=== PATIENT | male | born 1950 | race Caucasian/White ===

== ENCOUNTER → 2022-08-28 09:09 | Outpatient (BNVA) | payer MEDICARE, SELFPAY | PROVIDERS: Family Provider Family Medicine; Visit Provider Podiatrist Foot & Ankle Surgery | DX: E11.42 Type 2 diabetes mellitus with diabetic polyneuropathy (principal); L60.3 Nail dystrophy; M21.41 Flat foot [pes planus] (acquired), right foot; M21.42 Flat foot [pes planus] (acquired), left foot; M20.41 Other hammer toe(s) (acquired), right foot; M20.42 Other hammer toe(s) (acquired), left foot; Z79.84 Long term (current) use of oral hypoglycemic drugs; Z79.4 Long term (current) use of insulin | CPT/HCPCS: 11721; 99204 ==

== ENCOUNTER 2022-10-03 14:08 | Outpatient (CLI) | payer MEDICARE, SELFPAY ==
--- NOTE | 2022-10-03 14:21 | USCV_ITS ---
Mitesh Batista Age: 72 Gender: M : 1950 Exam Date: 10/03/2022 14:48 Ordering Phys: Jennifer Bazzi MD Technologist: Exam [place] [facility] [place] Indication: pad leg pain Risk Factors: Previous Vascular Surgery: RIGHT LEFT BP: 130.0 / 80.00 BP: 130.0/ 80.00 0 0 Waveform Velocity (cm/s) Velocity (cm/s) Waveform Triphasic 84.9 Iliac Prox 149.7 Triphasic Triphasic 99.5 Iliac Mid 145.5 Triphasic Triphasic 96.9 Iliac Distal 127.3 Triphasic Triphasic 84.5 IRON MINER 130.1 Triphasic Triphasic 124.5 SFA Prox 152.5 Triphasic Triphasic 136.6 SFA Mid 117.5 Triphasic Triphasic SFA Dist Triphasic 136.6 118.9 Biphasic 51.8 POP 71.6 Triphasic Biphasic 56.0 DAIRY SCIENTIST 58.3 Biphasic Biphasic 42.5 DPA 58.3 Biphasic 1.1 CAROL 1.1 FINDINGS Normal resting ABIs bilaterally Near normal arterial Doppler waveforms bilaterally. Near normal Doppler flow velocities bilaterally CONCLUSIONS No evidence of any significant arterial obstruction, based on the above findings. Dr Rose Pineda MD [facility] (Electronically Signed) Final Date: 03 October 2022 17:03 S
== END 2022-10-03 14:09 | disposition home or self-care (01) ==
LOC: RAD 14:11
PROVIDERS: PCP Family Medicine; Visit Provider Family Medicine
DX: I73.9 Peripheral vascular disease, unspecified (principal); E11.51 Type 2 diabetes mellitus with diabetic peripheral angiopathy without gangrene
CPT/HCPCS: 93925

== ENCOUNTER 2023-12-13 19:27 | Inpatient (IN) | payer MEDICARE, SELFPAY ==
[2023-12-13] VITALS (11 sets, daily range): BP systolic 119–162; BP diastolic 43–83; PULSE 58–67; RESP 16–18; TEMP 36.4–36.8; O2SAT 94–99; BMI 32.4
--- NOTE | 2023-12-13 19:32 | XRR_ITS ---
PROCEDURE INFORMATION: Exam: XR Chest Exam date and time: 12/13/2023 8:10 PM Age: 73 years old Clinical indication: Other: Weakness TECHNIQUE: Imaging protocol: Radiologic exam of the chest. Views: 1 view. COMPARISON: No relevant prior studies available. FINDINGS: Lungs: Low lung volumes. Pleural spaces: No pleural effusion. No pneumothorax. Heart/Mediastinum: Enlarged cardiac silhouette. Bones/joints: Age appropriate. XR/XR chest 1V portable [id number] IMPRESSION: Low lung volumes without convincing airspace disease or edema. Moderate cardiomegaly.
--- NOTE | 2023-12-13 19:33 | ECG_ITS ---
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 Measurements Intervals [place] Rate: 63 P: 83 CO: 174 QRS: 84 QRSD: 102 T: 77 QT: 418 QTc: 431 Interpretive Statements SINUS RHYTHM WITH OCCASIONAL VENTRICULAR PREMATURE COMPLEXES WITH OCCASIONAL SUPRAVENTRICULAR PREMATURE COMPLEXES No previous ECG available for comparison Electronically Signed On 12-14-2023 21:34:29 CDT by Brian Downey M.D. [email or web address] [email or web address] [email or web address]/[id number]
--- NOTE | 2023-12-13 19:46 | CTR_ITS ---
PROCEDURE INFORMATION: Exam: CT Head Without Contrast Exam date and time: 12/13/2023 8:08 PM Age: 73 years old Clinical indication: Altered mental status/memory loss; Patient HX: EMS arrival for AMS. EMS reports glucose of 88. Patient is restless and non verbal with eyes closed. ; Additional info: Encephalopathy, altered mental status TECHNIQUE: Imaging protocol: Computed tomography of the head without contrast. Radiation optimization: All CT scans at this facility use at least one of these dose optimization techniques: automated exposure control; mA and/or kV adjustment per patient size (includes targeted exams where dose is matched to clinical indication); or iterative reconstruction. COMPARISON: No relevant prior studies available. RADIATION DOSE METRICS: Total DLP (mGy-cm): 2405.98 FINDINGS: Brain: No hemorrhage. Unremarkable white matter. No mass effect. Preserved conley-white interfaces. Cerebral ventricles: No ventriculomegaly. Paranasal sinuses: Visualized sinuses are unremarkable. No fluid levels. Mastoid air cells: Visualized mastoid air cells are well aerated. Bones: Unremarkable. No acute fracture. Soft tissues: Unremarkable. CT/CT head wo con* [id number] IMPRESSION: No evidence of acute intracranial hemorrhage, mass effect, or edema.
--- NOTE | 2023-12-13 19:47 | W.ED.AMS ---
HPI - Altered Mental Status General: Chief Complaint: Altered Mental Status Stated Complaint: hypoglycemic Time Seen by Provider: 12/13/23 19:32 History of Present Illness: 73-year-old man who presents the emergency room with hypoglycemia and altered mental status by ambulance. He is still a bit confused on presentation but will answer some questions. He states that he does not feel well. He denies anything hurting at the moment. Unable to obtain much other history from him at this time. Review of Systems General: Reports: ROS unobtainable due to medical condition and ROS unobtainable due to mental status Physical Exam Narrative: General: Patient is somnolent but arousable, diaphoretic.. Skin: Warm, diaphoretic. Head: Normocephalic, atraumatic. Neck: Supple, trachea midline. Eye: Extraocular movements are intact. Ears, nose, mouth and throat: mucosa moist. Cardiovascular: Regular, Normal peripheral perfusion. Respiratory: Lungs are clear to auscultation, respirations are non-labored, breath sounds are equal, Symmetrical chest wall expansion. Gastrointestinal: Soft, Nontender, Non distended, Normal bowel sounds. Musculoskeletal: Normal ROM, no deformity. Neurological: Very somnolent, No focal neurological deficit observed. Psychiatric: Somnolent, unable to assess Course Vital Signs: Vital signs: Vital Signs Temperature 98.3 F 12/13/23 19:30 Pulse Rate 63 12/13/23 19:30 Respiratory Rate 16 12/13/23 19:30 Blood Pressure 149/58 12/13/23 19:30 Pulse Oximetry 97 12/13/23 19:30 Oxygen Delivery Me thod Nasal Cannula 12/13/23 19:30 Oxygen Flow Rate 2 12/13/23 19:30 MDM - Altered Mental Status Medical Decision Making Medical decision making: Differential diagnosis including but not limited to and based on the above HPI, review of systems and physical exam: In this patient with altered mental status: Stroke. Hypoglycemia. Metabolic encephalopathy. Infections such as pneumonia, urinary tract infection, Covid-19, Influenza. Electrolyte abnormalities such as hypernatremia. Renal failure / uremia. Hepatic encephalopathy. Hypoxemia. Hypercapnic respiratory failure. Psychosis. Drug or alcohol intoxication. Medication overdose. Orders placed to evaluate differential diagnosis based on the above differential, HPI and physical exam Lab Review: Laboratory results were reviewed and interpreted by myself the emergency room physician. Lab work is fairly unremarkable. BUN creatinine are slightly elevated with creatinine of 1.3. I have no previous measurements. His glucoses remained above 90 here. Urinalysis is clear. Drug screen is negative. Bilateral level is negative. AB.3 no CO2 retention. Chest x-ray: No acute process. No infiltrate. No pneumothorax. No cardiomegaly. This was reviewed and interpreted by myself the ER physician. CT head: No acute intracranial process. no intracranial hemorrhage, no evidence of infarct. no evidence of acute fracture.This was reviewed and interpreted by myself the ER physician. I also reviewed the radiology reports. I reviewed the patient's medical record. Reexamination: Patient still fairly somnolent but is less agitated at admission. Narcan did not seem to make any difference. I discussed plan for admission with . I discussed results with her. He has no focal motor deficits. No increased work of breathing. Assessment and plan: Metabolic encephalopathy Dehydration -I discussed the patient with the hospitalist on-call who is admitting the patient. - Discussed findings and plan with patient. Answered any questions. - All laboratory values were reviewed and interpreted personally by myself, the ER physician - All imaging was reviewed and interpreted personally by myself, the ER physician. - Evaluation and treatment of this problem were appropriate in the emergency setting Lab Data 12/13/23 19:48 12/13/23 19:48 Radiology Impressions Chest X-Ray 12/13/23 19:32 IMPRESSION: Low lung volumes without convincing airspace disease or edema. Moderate cardiomegaly. Head CT 12/13/23 19:46 IMPRESSION: No evidence of acute intracranial hemorrhage, mass effect, or edema. Laboratory Results WBC 7.31 10^3/uL (3.29-11.43) 12/13/23 19:48 RBC 5.19 10^6/uL (3.85-5.65) 12/13/23 19:48 Hgb 15.90 g/dL (11.27-16.99) 12/13/23 19:48 Hct 48.1 % (37-53) 12/13/23 19:48 MCV 92.7 fl (82-101) 12/13/23 19:48 MCH 30.6 pg (27-33) 12/13/23 19:48 MCHC 33.1 g/dL (30-55) 12/13/23 19:48 RDW 13.6 % (12.1-15.1) 12/13/23 19:48 Plt Count 218 10^3/cmm (157-399) 12/13/23 19:48 MPV 10.6 fL (7.4-10.4) H 12/13/23 19:48 Neut % (Auto) 54.4 % 12/13/23 19:48 Lymph % (Auto) 26.3 % 12/13/23 19:48 Emmons % (Auto) 11.8 % 12/13/23 19:48 Eos % (Auto) 6.4 % 12/13/23 19:48 Baso % (Auto) 0.8 % 12/13/23 19:48 Neut # (Auto) 3.98 10^3/uL (1.8-7.7) 12/13/23 19:48 Lymph # (Auto) 1.9 10^3/uL (0.8-4.8) 12/13/23 19:48 Emmons # (Auto) 0.9 10^3/uL (0.2-0.9) 12/13/23 19:48 Eos # (Auto) 0.5 10^3/uL (0.0-0.8) 12/13/23 19:48 Baso # (Auto) 0.1 10^3/uL (0.0-0.1) 12/13/23 19:48 Nucleated RBC % (auto) 0 % 12/13/23 19:48 Nucleated RBCs # 0.0 /100WBC 12/13/23 19:48 Specimen Type Arterial 12/13/23 19:46 Sample Site Radial, right 12/13/23 19:46 ABG pH 7.38 (7.35-7.45) 12/13/23 19:46 ABG pCO2 42.6 mmHg (35-45) 12/13/23 19:46 ABG pO2 76.3 mmHg (80.0-100.0) L 12/13/23 19:46 ABG HCO3 25.0 mmol/L (22-26) 12/13/23 19:46 ABG O2 Saturation 95.6 12/13/23 19:46 ABG Base Excess -0.4 mmol/L (-2.0-2.0) 12/13/23 19:46 Alli Test Pos 12/13/23 19:46 A-a O2 Gradient 2.6 mmHg (5-10) L 12/13/23 19:46 Hematocrit 48.8 % (42-52) 12/13/23 19:46 Hgb O2 Saturation 93.8 % (95-100) L 12/13/23 19:46 Carboxyhemoglobin 1.3 %THgb (0.4-20.1) 12/13/23 19:46 Methemoglobin 0.5 % (0.4-1.5) 12/13/23 19:46 Total Hemoglobin 15.9 g/dL (14-18) 12/13/23 19:46 Sodium 137.0 mmol/L (131-143) 12/13/23 19:46 Potassium 3.6 mmol/L (3.5-5.0) 12/13/23 19:46 Glucose 94.0 mg/dL (70-115) 12/13/23 19:46 Ionized Calcium 1.1 mmol/L (1.1-1.4) 12/13/23 19:46 O2 Delivery Device Room air 12/13/23 19:46 Logistic Specialist ID [email or web address] 12/13/23 19:46 Sodium 137 mmol/L (136-145) 12/13/23 19:48 Potassium 4.0 mmol/L (3.5-5.1) 12/13/23 19:48 Chloride 98 mmol/L (98-107) 12/13/23 19:48 Carbon Dioxide 28 mmol/L (22-29) 12/13/23 19:48 Anion Gap 15.0 (5-19) 12/13/23 19:48 BUN 25 mg/dL (8-23) H 12/13/23 19:48 Creatinine 1.3 mg/dL (0.7-1.2) H 12/13/23 19:48 GFR Calculation Not Reportable 12/13/23 19:48 Glucose 97 mg/dL (65-115) 12/13/23 19:48 Calculated Osmolality 288 mOsm/kg (285-295) 12/13/23 19:48 Lactic Acid 3.3 mmol/L (0.5-2.2) H 12/13/23 19:48 Calcium 8.8 mg/dL (8.5-10.5) 12/13/23 19:48 Total Bilirubin 0.7 mg/dL (0.15-1.2) 12/13/23 19:48 AST 28 U/L (0-40) 12/13/23 19:48 ALT 34 U/L (0-41) 12/13/23 19:48 Alkaline Phosphatase 73 U/L (40-130) 12/13/23 19:48 Troponin T Baseline 39 ng/L (0-15) H 12/13/23 19:48 C-Reactive Protein 3.0 mg/L (0.0-4.9) 12/13/23 19:48 Total Protein 6.9 g/dL (6.6-8.7) 12/13/23 19:48 Albumin 4.0 g/dL (3.5-5.2) 12/13/23 19:48 Globulin 2.9 g/dL (1.3-4.6) 12/13/23 19:48 Urine Color Yellow (Yellow) 12/13/23 20:01 Urine Appearance Clear (CLEAR) 12/13/23 20:01 Urine pH 5 (5-7) 12/13/23 20:01 Ur Specific [place] 1.005 (1.005-1.030) 12/13/23 20:01 Urine Protein Neg (Negative) 12/13/23 20:01 Urine Glucose (UA) 4+ (Normal) H 12/13/23 20:01 Urine Ketones Negative (Negative) 12/13/23 20:01 Urine Blood Neg (Negative) 12/13/23 20:01 Urine Nitrate Negative (Negative) 12/13/23 20:01 Urine Bilirubin Neg (Negative) 12/13/23 20:01 Urine Urobilinogen Neg mg/dL (Negative) 12/13/23 20:01 Ur Leukocyte Esterase Negative (Negative) 12/13/23 20:01 Urine RBC 0-4 /hpf (0-2) H 12/13/23 20:01 Urine WBC 0-4 /hpf (0-5) H 12/13/23 20:01 Ur Squamous Epith Cells 0-4 /hpf (0-5) H 12/13/23 20:01 Amorphous Sediment Not Reportable 12/13/23 20:01 Urine Bacteria Trace /hpf (NONE) 12/13/23 20:01 Urine Mucus Trace /hpf 12/13/23 20:01 Urine Opiates Screen Negative ng/mL (Negative) 12/13/23 20:01 Ur Barbiturates Screen Negative ng/mL (Negative) 12/13/23 20:01 Ur Phencyclidine Scrn Negative ng/mL (Negative) 12/13/23 20:01 Ur Amphetamines Screen Negative ng/mL (Negative) 12/13/23 20:01 U Benzodiazepines Scrn Negative ng/mL (Negative) 12/13/23 20:01 Urine Cocaine Screen Negative ng/mL (Negative) 12/13/23 20:01 U Marijuana (THC) Screen Negative ng/mL (Negative) 12/13/23 20:01 Ethyl Alcohol < 10 mg/dL (0-10) 12/13/23 19:48 All radiology interpretation(s) finalized by discharge Discharge Plan Discharge Patient Disposition: Admitted As Inpatient Admit Provider: Roland Hunt Clinical Impression: Hypoglycemia, Altered mental status, Metabolic encephalopathy, Dehydration Condition: Stable Coding Level of Care Code ED Well Cleaner for Merlin Rendon
[2023-12-13 19:58] LABS: ABG PCO2 42.6 mmHg (35-45); ABG PH Result 7.38 (7.35-7.45); Alveolar-Arterial Oxygen Gradi 2.6 mmHg (5-10); Arterial Blood Gas Hematocrit 48.8 % (42-52); Base Excess ABG -0.4 mmol/L (-2.0-2.0); Blood Gas Allen Test Pos; Blood Gas Sample Site Radial, right; Blood Gas Sample Type Arterial; Carboxyhemoglobin 1.3 %THgb (0.4-20.1); HGB O2 Sat 93.8 % (95-100); Ionized Calcium Level - ABG 1.1 mmol/L (1.1-1.4); Methemoglobin 0.5 % (0.4-1.5); Oxygen Device ROOM AIR; Oxygen Saturation ABG 95.6; PO2 ABG 76.3 mmHg (80.0-100.0); Potassium Level - ABG 3.6 mmol/L (3.5-5.0); Total Hemoglobin 15.9 g/dL (14-18)
[2023-12-13 20:13] LABS: Basophils # 0.1 10^3/uL (0.0-0.1); Basophils % 0.8 %; Eosinophils # 0.5 10^3/uL (0.0-0.8); Eosinophils % 6.4 %; Hematocrit 48.1 % (37-53); Lymphocytes # 1.9 10^3/uL (0.8-4.8); Lymphocytes % 26.3 %; Mean Corpuscular HGB Conc 33.1 g/dL (30-55); Mean Corpuscular Hemoglobin 30.6 pg (27-33); Mean Corpuscular Volume 92.7 fl (82-101); Mean Platelet Volume 10.6 fL (7.4-10.4); Monocytes # 0.9 10^3/uL (0.2-0.9); Monocytes % 11.8 %; Neutrophils # 3.98 10^3/uL (1.8-7.7); Neutrophils % 54.4 %; Nucleated Red Blood Cells % 0 %; Platelet Count 218 10^3/cmm (157-399); Red Blood Count 5.19 10^6/uL (3.85-5.65); Red Cell Distribution Width 13.6 % (12.1-15.1); White Blood Count 7.31 10^3/uL (3.29-11.43)
[2023-12-13 20:19] LABS: Bacteria Urine TRACE /hpf; Bilirubin Urine Neg (Negative); Blood Urine Neg (Negative); Glucose Urine UA 4+ (Normal); Ketones Urine Negative (Negative); Leukocyte Esterase Urine Negative (Negative); Nitrate Urine Negative (Negative); Protein Urine Neg (Negative); RBC Urine 0-4 /hpf (0-2); Specific Gravity, Urine 1.005 (1.005-1.030); Squamous Epithelial Cell Urine 0-4 /hpf (0-5); Urine Appearance Clear (CLEAR); Urine Color Yellow (Yellow); Urobilinogen Urine Neg (Negative); WBC Urine 0-4 /hpf (0-5); pH Urine 5 (5-7)
[2023-12-13 20:20] LABS: Mucus Urine TRACE /hpf
[2023-12-13 20:32] LABS: Lactic Sepsis W/Reflex 3.3 mmol/L (0.5-2.2)
[2023-12-13 20:33] LABS: Alanine Aminotransferase 34 U/L (0-41); Alkaline Phosphatase 73 U/L (40-130); Aspartate Amino Transferase 28 U/L (0-40); Blood Urea Nitrogen 25 mg/dL (8-23); Calcium 8.8 mg/dL (8.5-10.5); Carbon Dioxide 28 mmol/L (22-29); Chloride 98 mmol/L (98-107); Globulin 2.9 g/dL (1.3-4.6); Glucose 97 mg/dL (65-115); Osmolality Calculated 288 mOsm/kg (285-295); Sodium 137 mmol/L (136-145); Total Bilirubin 0.7 mg/dL (0.15-1.2); Total Protein 6.9 g/dL (6.6-8.7)
[2023-12-13 20:36] LABS: Troponin(5th) Baseline 39 ng/L (0-15)
[2023-12-13 20:38] LABS: Alcohol Level < 10 mg/dL (0-10)
[2023-12-13] MEDS: naloxone 0.4 mg/ml SDV 0.400000000000000022 MG IVP (21:01)
[2023-12-13 21:14] LABS: Amphetamines Screen Urine Negative (Negative); Barbiturates Screen Urine Negative (Negative); Benzodiazepines Screen Urine Negative (Negative); Cocaine Screen Urine Negative (Negative); Opiate Screen Urine Negative (Negative); PCP Screen Urine Negative (Negative); THC Screen Urine Negative (Negative)
--- NOTE | 2023-12-13 21:33 | ECG_ITS ---
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 Measurements Intervals [place] Rate: 55 P: 50 IN: 195 QRS: 20 QRSD: 96 T: 50 QT: 436 QTc: 418 Interpretive Statements SINUS BRADYCARDIA Compared to ECG 12/13/2023 19:51:31 Sinus rhythm no longer present Ventricular premature complex(es) no longer present Electronically Signed On 12-14-2023 21:37:22 CDT by Brian Downey M.D. [id number]
[2023-12-13 21:35] LABS: Glucose Point of Care 85 mg/dL (70-110)
[2023-12-13 21:45] LABS: Procalcitonin 0.11 ng/mL (0-0.5)
[2023-12-13] MEDS: dextrose 10% 250 ML 1000 ML IV (21:48)
--- NOTE | 2023-12-13 21:48 | PM.HP ---
Providers/Chief Complaint Admitting Physician: Roland Hunt MD Primary Care Provider: Jennifer Bazzi MD Chief Complaint: hypoglycemic History of Present Illness Mitesh Batista is a 73 year old male who called EMS today this afternoon due to episode of hypoglycemia. Patient stated that he felt like he was going to pass out and was becoming dizzy so he called EMS. His blood sugar was noted to be 30 at the time of EMS pickup. He he received dextrose in the emergency room, however continued to be somnolent thereafter. CT of the head was without any evidence of acute stroke. Patient is much better at the time of my assessment later tonight. He is alert awake and oriented. Patient takes sliding scale insulin prior to meals and also takes insulin glargine at 70 units daily. States he has frequent episodes of hypoglycemia especially towards the afternoon time. There has been no recent changes in his insulin dosing. He reports his last A1c was at around 7. Insulin is typically managed by his primary care provider. Has had no other complaints previously. Review of Systems General: Reports: 10 or more systems reviewed and unremarkable except in HPI and below Const: Denies: fever(s), chills or body aches Eyes: Denies: change in vision, blurry vision or photophobia ENMT: Reports: hoarseness; Denies: throat pain, enlarged tonsils, odynophagia or nasal congestion Card: Denies: chest pain, palpitations, irregular heart rhythm, edema, swelling of feet/ankles, lightheadedness, pre-syncope, dyspnea on exertion or orthopnea Resp: Denies: dyspnea, productive cough, non-productive cough, wheezing, stridor, pain on inspiration, change in phlegm color, hemoptysis or chest congestion GI: Denies: abdominal pain, nausea, vomiting, hematemesis, coffee ground emesis, dysphagia, heartburn, diarrhea, constipation, GI cramping, change in stool character, hematochezia or melena : Denies: flank pain, dysuria, urinary frequency, urinary urgency, urinary hesitancy or hematuria Musc: Denies: neck pain, back pain, extremity pain, joint swelling, joint warmth or deformity Neuro: Denies: headache(s), numbness in extremities, weakness in extremities, sensory changes, difficulty walking, frequent falls, dizziness, vertigo, behavioral changes, Slurred speech present or seizure-like activity Psych: Denies: anxiety, depression, suicidal ideation or homicidal ideation Endo: Denies: polyuria, polydipsia, tired all the time, cold intolerance or hot flashes Naveen/Lymph: Denies: easy bruising or easy bleeding Medications/Allergies Home Medications Medication Instructions Recorded Confirmed Last Taken Type Diabetic Shoes with 3 sets of #2 ea 08/28/22 08/28/22 Unknown Rx insoles chlorthalidone 50 mg tablet 1 tab PO DAILY 08/28/22 12/14/23 1 Day Ago History ~12/13/23 insulin aspart U-100 100 unit/mL See Rx Instructions .Route .COMPLEX 08/28/22 12/14/23 Unknown History (3 mL) subcutaneous pen insulin glargine 100 unit/mL (3 70 unit SUBCUT DAILY 08/28/22 12/14/23 1 Day Ago History mL) subcutaneous pen (Lantus ~12/13/23 Solostar U-100 Insulin) losartan 50 mg tablet 1 tab PO BID 08/28/22 12/14/23 1 Day Ago History ~12/13/23 metformin 1,000 mg tablet 0.5 tab PO BID 08/28/22 12/14/23 1 Day Ago History ~12/13/23 methocarbamol 500 mg tablet 1 ea PO TID PRN muscle spasms 08/28/22 12/13/23 12/13/23 08:00 History metoprolol succinate 50 mg 1 tab PO BID 08/28/22 12/14/23 1 Day Ago History tablet,extended release 24 hr ~12/13/23 oxycodone-acetaminophen 10 mg-325 1 tab PO QID PRN Pain 08/28/22 12/13/23 12/13/23 08:00 History mg tablet zolpidem 10 mg tablet 1 tab PO BEDTIME 08/28/22 12/14/23 2 Days Ago History ~12/12/23 pregabalin 150 mg capsule (Lyrica) 150 mg PO TID PRN Pain 12/13/23 12/13/23 12/13/23 08:00 History aspirin 81 mg tablet See Rx Instructions .Route .COMPLEX 12/14/23 12/14/23 1 Day Ago History ~12/13/23 atorvastatin 40 mg tablet 40 mg PO BEDTIME 12/14/23 12/14/23 2 Days Ago History ~12/12/23 cholecalciferol (vitamin D3) 125 125 mcg PO DAILY 12/14/23 12/14/23 1 Day Ago History mcg (5,000 unit) capsule ~12/13/23 cyanocobalamin (vitamin B-12) 500 500 mcg PO DAILY 12/14/23 12/14/23 1 Day Ago History mcg tablet (Vitamin B-12) ~12/13/23 empagliflozin 25 mg tablet 25 mg PO DAILY 12/14/23 12/14/23 1 Day Ago History (Jardiance) ~12/13/23 ginkgo biloba 40 mg tablet 40 mg PO BEDTIME 12/14/23 12/14/23 1 Day Ago History ~12/13/23 glucosamine sulfate 500 mg tablet See Rx Instructions .Route .COMPLEX 12/14/23 12/14/23 1 Day Ago History (Glucosamine) ~12/13/23 magnesium 100 mg tablet 400 mg PO DAILY 12/14/23 12/14/23 1 Day Ago History ~12/13/23 trazodone 50 mg tablet 50 mg PO BEDTIME 12/14/23 12/14/23 2 Days Ago History ~12/12/23 vitamin B complex 1 cap PO BID 12/14/23 12/14/23 1 Day Ago History ~12/13/23 Allergies Allergy/AdvReac Type Severity Reaction Status Date / Time No Known Allergies Allergy Verified 08/28/22 09:13 Vitals/I&O/Wt Last Vital Signs Temp 98.3 F 12/13/23 19:30 Pulse 63 12/13/23 19:30 Resp 16 12/13/23 19:30 BP 149/58 12/13/23 19:30 Pulse Ox 97 12/13/23 19:30 O2 Del Method Nasal Cannula 12/13/23 19:30 O2 Flow Rate 2 12/13/23 19:30 Weight last 48 hrs Weight 130.635 kg Physical Exam Narrative: General: No acute distress, AO x3 HEENT: PERRLA, pupils bilaterally equal and reactive, pallors not present Chest: Normal vesicular breath sounds, no added sounds, equal good air entry bilaterally CVS: S1-S2 regular, no murmurs, no tachycardia, no gallops, no rubs Abdomen: Soft, nontender, no organomegaly, bowel sounds present Neuro: No focal deficits, no facial deformity, AO x3, power 5/5 in all limbs Data 12/14/23 02:04 12/14/23 02:04 Micro: Microbiology 12/13/23 19:45 Blood Culture - Preliminary Blood SPECIMEN COLLECTED 12/13/23 19:48 Blood Culture - Preliminary Blood SPECIMEN COLLECTED A&P Assessment and plan (1) Hypoglycemia: Patient presented to the emergency room with hypoglycemia, initial blood sugar of 30 at home. Received dextrose however did not have immediate improvement. He continued to be somnolent and non verbal and therefore had a CT head to evalute for stroke He has now been started on d5 NS infusion. [facility] and [facility] Currently able to tell me his name, age, . remembers being hypoglycemic and calling EMS states he has episodes of hypoglycemia t home check Hba1c, insulin dose may need readjustment CT head normal , no focal neuro deficits start oral intake now that he is more awake and alert Attestations Medical Necessity Statement*: less than 2 midnight stay is anticipated Diagnoses Hypoglycemia E16.2
[2023-12-13 21:54] LABS: Reflex Lactate Order REFLEX LACTIC ORDERD
[2023-12-13 22:01] LABS: Troponin 5 2HR 33.33 ng/L (0-15)
[2023-12-13 22:02] LABS: Troponin 5 2HR Delta -5.67 ABS# (0-10)
[2023-12-13 22:18] LABS: Glucose Point of Care 166 mg/dL (70-110)
[2023-12-13 22:36] LABS: Add Urine Microscopic? NO; Bilirubin Urine Neg (Negative); Blood Urine Neg (Negative); Glucose Urine UA 4+ (Normal); Ketones Urine Negative (Negative); Nitrate Urine Negative (Negative); Protein Urine Neg (Negative); Urine Appearance Clear (CLEAR); Urine Color Yellow (Yellow); pH Urine 6.5 (5-7)
[2023-12-13 22:37] LABS: Leukocyte Esterase Urine Negative (Negative); Urobilinogen Urine Neg (Negative)
[2023-12-13 22:38] LABS: Charge for UA Resulting for Rev
[2023-12-13 23:10] LABS: Lactic Acid level (Lactate) 1.3 mmol/L (0.5-2.2)
--- NOTE | 2023-12-13 23:37 | PC.NURSE ---
Addendum entered by Charmaine Vang RN 12/14/23 02:23: Daughter went to home and got med list. Med rec updated. Original Note: Daughter states she will bring home medication list for patient tomorrow. and daughter were verbally able to tell me some of his home medications, but not all of them. Dr. Chilel notified that patient is asking for his home medications Lyrica and Oxycodone. Ordered okay to continue home dose of Oxycodone, but not Lyrica. Dr. Chilel notified that patient is now awake, alert, and oriented. Diet ordered for patient. Patient refused barreto catheter. Dr. Chilel notified.
[2023-12-13] MEDS: pantoprazole 40 mg SDV IVP (23:55)
[2023-12-13] MEDS: dextrose 5%-sod chloride 0.9% 1,000 ML 75 ML IV (23:55)
[2023-12-13] MEDS: oxyCODONE-APAP 10-325 mg Tablet 1 TAB PO (23:55)
[2023-12-13] MEDS: heparin 5,000 unit/mL INJ 1 mL 5000 UNIT SUBCUT (23:56)
[2023-12-14] VITALS (11 sets, daily range): BP systolic 110–172; BP diastolic 67–79; PULSE 46–64; RESP 10–20; TEMP 36.4–36.6; O2SAT 94–97
--- NOTE | 2023-12-14 01:33 | ECG_ITS ---
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 Measurements Intervals [place] Rate: 49 P: 102 NH: 186 QRS: 26 QRSD: 102 T: 42 QT: 490 QTc: 443 Interpretive Statements SINUS BRADYCARDIA WITH OCCASIONAL SUPRAVENTRICULAR PREMATURE COMPLEXES Compared to ECG 12/14/2023 00:18:45 No significant changes Electronically Signed On 12-14-2023 21:37:08 CDT by Brian Downey M.D. [email or web address] medical centerChatosity/store/[id number]
[2023-12-14 01:38] LABS: Iron 84 ug/dL (59-158); Percent Saturation 27.3 % (20-50); Total Iron Binding Capacity 307 mcg/dl; Unsaturated Iron Binding 223 ug/dL (112-347)
[2023-12-14 01:50] LABS: Vitamin B12 696 pg/mL (232-1245)
[2023-12-14 02:13] LABS: Basophils # 0.1 10^3/uL (0.0-0.1); Basophils % 0.8 %; Eosinophils # 0.5 10^3/uL (0.0-0.8); Eosinophils % 7.7 %; Hematocrit 47.3 % (37-53); Lymphocytes # 1.9 10^3/uL (0.8-4.8); Lymphocytes % 28.2 %; Mean Corpuscular HGB Conc 33.2 g/dL (30-55); Mean Corpuscular Hemoglobin 30.4 pg (27-33); Mean Corpuscular Volume 91.5 fl (82-101); Mean Platelet Volume 10.2 fL (7.4-10.4); Monocytes # 0.7 10^3/uL (0.2-0.9); Monocytes % 10.4 %; Neutrophils # 3.49 10^3/uL (1.8-7.7); Neutrophils % 52.6 %; Nucleated Red Blood Cells % 0 %; Platelet Count 195 10^3/cmm (157-399); Red Blood Count 5.17 10^6/uL (3.85-5.65); Red Cell Distribution Width 13.5 % (12.1-15.1); White Blood Count 6.63 10^3/uL (3.29-11.43)
--- NOTE | 2023-12-14 02:19 | PC.NURSE ---
Dr. Chilel notified that patient is bradycardic in the 50s. Also notified that he is asking for sleeping medication Ambien and Trazodone that he takes at home. Home dose of Trazodone ordered. Ambien not ordered.
[2023-12-14 02:26] LABS: Estmated Average Glucose 186; Hemoglobin A1C 8.1 % (4.0-6.0)
[2023-12-14 02:30] LABS: Chol HDL Ratio 3.23 mg/dL (1.0-5.00); Cholesterol 84 mg/dL (0-200); HDL Cholesterol 26 mg/dL (60-100); LDL Cholesterol Calculated 39 mg/dL (50-129); Triglycerides 96 mg/dL (0-150)
[2023-12-14 02:31] LABS: Alanine Aminotransferase 30 U/L (0-41); Albumin Level 3.8 g/dL (3.5-5.2); Alkaline Phosphatase 67 U/L (40-130); Anion Gap 12.7 (5-19); Aspartate Amino Transferase 26 U/L (0-40); Blood Urea Nitrogen 24 mg/dL (8-23); Calcium 8.5 mg/dL (8.5-10.5); Carbon Dioxide 27 mmol/L (22-29); Chloride 104 mmol/L (98-107); Creatinine Clr Calc Pharmacy 84.5537; Globulin 2.2 g/dL (1.3-4.6); Glucose 103 mg/dL (65-115); Magnesium 2.1 mg/dL (1.7-2.3); Osmolality Calculated 294 mOsm/kg (285-295); Phosphorus 4.1 mg/dL (2.5-4.5); Potassium 3.7 mmol/L (3.5-5.1); Sodium 140 mmol/L (136-145); Total Bilirubin 0.6 mg/dL (0.15-1.2)
[2023-12-14] MEDS: trazodone 50 mg Tablet PO (02:36)
[2023-12-14 03:47] LABS: Glucose Point of Care 102 mg/dL (70-110)
[2023-12-14 06:59] LABS: Glucose Point of Care 88 mg/dL (70-110)
[2023-12-14] MEDS: heparin 5,000 unit/mL INJ 1 mL 5000 UNIT SUBCUT ×2 (10:24→21:56)
[2023-12-14] MEDS: dextrose 5%-sod chloride 0.9% 1,000 ML 75 ML IV (12:11)
[2023-12-14] MEDS: oxyCODONE-APAP 10-325 mg Tablet 1 TAB PO (12:12)
[2023-12-14] MEDS: losartan 50 mg Tablet PO (12:13)
[2023-12-14] MEDS: aspirin 81 mg EC Tablet PO (12:14)
[2023-12-14 12:46] LABS: Glucose Point of Care 181 mg/dL (70-110)
--- NOTE | 2023-12-14 13:00 | P.PN_ITS ---
Subjective 2 Subjective: Admitted overnight. Today morning patient seen with multiple family members at bedside. He is on D5W. Denies any new complaints. Denies any headache. Hemodynamically has remained stable. Vitals/I&O/Wt Last Vital Signs Temp 97.5 F L 12/14/23 08:00 Pulse 61 12/14/23 08:00 Resp 18 12/14/23 12:12 BP 155/79 12/14/23 12:13 Pulse Ox 97 12/14/23 08:00 O2 Del Method Room Air 12/14/23 08:00 O2 Flow Rate 2 12/13/23 19:30 12/13/23 12/14/23 12/14/23 22:59 06:59 14:59 Intake Total 250 / 250 1400 / 1400 Output Total 850 / 850 2475 / 3325 Balance -850 / -850 -2225 / -3075 1400 / 1400 Weight last 48 hrs Weight 134.218 kg Weight 132.494 kg Weight 132.041 kg Weight 130.635 kg Physical Exam 2 Narrative: General: No acute distress, AO x3 HEENT: PERRLA, pupils bilaterally equal and reactive, pallors not present Chest: Normal vesicular breath sounds, no added sounds, equal good air entry bilaterally CVS: S1-S2 regular, no murmurs, no tachycardia, no gallops, no rubs Abdomen: Soft, nontender, no organomegaly, bowel sounds present Neuro: No focal deficits, no facial deformity, AO x3, power 5/5 in all limbs Data 12/14/23 02:04 12/14/23 02:04 Micro: Microbiology 12/13/23 19:45 Blood Culture - Preliminary Blood SPECIMEN COLLECTED 12/13/23 19:48 Blood Culture - Preliminary Blood SPECIMEN COLLECTED A&P Assessment and plan (1) Syncope: Syncope most likely in setting of persistent hypoglycemia. Patient also having bradycardia. CT head on admission negative for acute abnormality Fall precaution. Physical therapy evaluation. (2) Hypoglycemia: Persistent hypoglycemia. Patient's blood sugar remained normal now while being on D5 NS. For now continue with D5 NS at 75 cc/h. Insulin sliding scale low-dose protocol. Carb consistent diet. (3) Type 2 diabetes mellitus: A1c found to be 8. Patient taking Lantus 70 units every morning along with sliding scale at home. Also takes metformin and Jardiance at home. Hypoglycemic events almost happening every afternoon as per patient. Admitted for syncope with hypoglycemia. Will continue to monitor blood sugars for next 24 hours. Will need to modify the dose of insulin at home as further requirement in next 24 to 48 hours. (4) Hypertension: Goal blood pressure less than 140/90 mmHg. On multiple medications at home including losartan 50 mg twice daily, metoprolol succinate 50 mg twice daily, chlorthalidone 50 mg oral daily. For now restart losartan at 50 mg oral daily dose. Will uptitrate as for goal blood pressures. (5) Bradycardia: Found to be bradycardic while sleeping. Continue property assessment monitor. Hold off on metoprolol for now. Most likely patient will need an event monitor on discharge to rule out further bradycardia. Will need to be discharged while holding metoprolol. Patient would benefit with sleep study as an outpatient. (6) Dehydration: Improving. Continue with fluid as above. (7) Hyperlipidemia: Appreciate lipid panel. Continue with home dose of atorvastatin. Plan Full code Carb consistent diet Protonix OPD prophylaxis Heparin 5000 every 12 hourly for DVT prophylaxis. Attestations 2 Medical Necessity Statement*: Requires further hospitalization for management of syncope and altered mental status in setting of hypoglycemia in a patient with long-term insulin use currently on D5W fluid, bradycardia while outpatient medications are adjusted Diagnoses Syncope R55 Hypoglycemia E16.2 Type 2 diabetes mellitus E11.9 Hypertension I10 Bradycardia R00.1 Dehydration E86.0 Hyperlipidemia E78.5
[2023-12-14 15:47] LABS: Glucose Point of Care 217 mg/dL (70-110)
[2023-12-14] MEDS: insulin lispro 100 unit/1 mL SUBCUT ×2 (16:25→21:56)
[2023-12-14 17:48] LABS: Glucose Point of Care 198 mg/dL (70-110)
[2023-12-14] MEDS: pantoprazole 40 mg SDV IVP (21:33)
[2023-12-14] MEDS: atorvastatin 40 mg Tablet PO (21:56)
[2023-12-15] VITALS (8 sets, daily range): BP systolic 131–161; BP diastolic 74–79; PULSE 56–67; RESP 17–19; TEMP 36.5–36.8; O2SAT 93–97
[2023-12-15] MEDS: trazodone 50 mg Tablet PO (00:23)
[2023-12-15 04:16] LABS: Glucose Point of Care 128 mg/dL (70-110)
[2023-12-15 05:42] LABS: Basophils # 0.1 10^3/uL (0.0-0.1); Basophils % 1.1 %; Eosinophils # 0.5 10^3/uL (0.0-0.8); Eosinophils % 8.9 %; Lymphocytes # 1.5 10^3/uL (0.8-4.8); Mean Corpuscular Hemoglobin 30.1 pg (27-33); Mean Corpuscular Volume 91.1 fl (82-101); Mean Platelet Volume 10.7 fL (7.4-10.4); Monocytes # 0.6 10^3/uL (0.2-0.9); Monocytes % 11.2 %; Neutrophils # 2.95 10^3/uL (1.8-7.7); Neutrophils % 52.6 %; Nucleated Red Blood Cells % 0 %; Platelet Count 198 10^3/cmm (157-399); Red Blood Count 5.05 10^6/uL (3.85-5.65); Red Cell Distribution Width 13.7 % (12.1-15.1); White Blood Count 5.61 10^3/uL (3.29-11.43)
[2023-12-15 06:14] LABS: Alanine Aminotransferase 25 U/L (0-41); Albumin Level 3.5 g/dL (3.5-5.2); Alkaline Phosphatase 68 U/L (40-130); Aspartate Amino Transferase 19 U/L (0-40); Blood Urea Nitrogen 23 mg/dL (8-23); Calcium 8.5 mg/dL (8.5-10.5); Carbon Dioxide 26 mmol/L (22-29); Chloride 105 mmol/L (98-107); Creatinine Clr Calc Pharmacy 93.0596; Globulin 2.7 g/dL (1.3-4.6); Glucose 134 mg/dL (65-115); Osmolality Calculated 296 mOsm/kg (285-295); Sodium 140 mmol/L (136-145); Total Bilirubin 0.4 mg/dL (0.15-1.2); Total Protein 6.2 g/dL (6.6-8.7)
[2023-12-15] MEDS: magnesium sulfate premix 1 GM/100 ML PIGGYBACK IV (09:31)
[2023-12-15] MEDS: losartan 50 mg Tablet PO (09:31)
[2023-12-15] MEDS: aspirin 81 mg EC Tablet PO (09:31)
[2023-12-15] MEDS: heparin 5,000 unit/mL INJ 1 mL 5000 UNIT SUBCUT (09:32)
[2023-12-15 09:49] LABS: Glucose Point of Care 171 mg/dL (70-110)
[2023-12-15] MEDS: insulin lispro 100 unit/1 mL SUBCUT (09:55)
--- NOTE | 2023-12-15 12:48 | PM.DCS ---
Discharge Providers Date of Admission: 12/13/23 21:24 Date of Discharge: December 15, 2023 Attending Provider at Admission: Roland Hunt MD Attending Provider at Discharge: Roland Hunt MD Primary Care Provider: Jennifer Bazzi MD Diagnoses at Discharge Discharge Diagnosis (1) Syncope: Status: Acute (2) Hypoglycemia: Status: Acute (3) Type 2 diabetes mellitus: Status: Acute (4) Hypertension: Status: Acute (5) Bradycardia: Status: Acute (6) Dehydration: Status: Acute (7) Hyperlipidemia: Status: Acute Reason for Visit Reason for Visit: hypoglycemic Brief History: History as per HPI: Mitesh Batista is a 73 year old male who called EMS today this afternoon due to episode of hypoglycemia. Patient stated that he felt like he was going to pass out and was becoming dizzy so he called EMS. His blood sugar was noted to be 30 at the time of EMS pickup. He he received dextrose in the emergency room, however continued to be somnolent thereafter. CT of the head was without any evidence of acute stroke. Patient is much better at the time of my assessment later tonight. He is alert awake and oriented. Patient takes sliding scale insulin prior to meals and also takes insulin glargine at 70 units daily. States he has frequent episodes of hypoglycemia especially towards the afternoon time. There has been no recent changes in his insulin dosing. He reports his last A1c was at around 7. Insulin is typically managed by his primary care provider. Has had no other complaints previously. Hospital Course Hospital Course Patient was admitted to the hospital further evaluation and management of altered mental status in setting of persistent hypoglycemia. He was started on D5 NS fluid to maintain his blood sugar was normal. Gradually within 36 hours his blood sugar started improving and he has started requiring insulin dose again. During hospitalization he was also found to have bradycardia especially while sleeping at night for which his home dose of metoprolol was withheld. He has been discharged back home in hemodynamically stable condition on Humalog/slow acting insulin premeals as per sliding scale. Long-acting insulin/Lantus and metformin has been stopped. He is to maintain a blood pressure diary for next 2 weeks and follow-up with a primary care provider for further adjustment of his insulin dose. During hospitalization he was also found to have soft blood pressures for which his antihypertensives were adjusted. He is not to take chlorthalidone and metoprolol for now. Only take losartan at home dose. He is to check his blood pressures daily at home maintain a blood pressure diary and follow-up with a primary care provider for further adjustment of antihypertensive. Patient would benefit from sleep study as an outpatient. He is also to have event monitor for further evaluation of bradycardia. Family requested referral for service team leader which has been provided. Physical Exam Narrative: General: No acute distress, AO x3 HEENT: PERRLA, pupils bilaterally equal and reactive, pallors not present Chest: Normal vesicular breath sounds, no added sounds, equal good air entry bilaterally CVS: S1-S2 regular, no murmurs, no tachycardia, no gallops, no rubs Abdomen: Soft, nontender, no organomegaly, bowel sounds present Neuro: No focal deficits, no facial deformity, AO x3, power 5/5 in all limbs Discharge Data Studies Completed and Pending Completed Studies During Hospitalization Category Date Time Status CT head wo con* [id number] Stat Cat Scan 12/13/23 19:46 Completed XR chest 1V portable [id number] Stat Exams 12/13/23 19:32 Completed Pending at discharge Category Date Time Status Blood Culture Stat Lab 12/13/23 19:48 Results Radiology Impressions Chest X-Ray 12/13/23 19:32 IMPRESSION: Low lung volumes without convincing airspace disease or edema. Moderate cardiomegaly. Head CT 12/13/23 19:46 IMPRESSION: No evidence of acute intracranial hemorrhage, mass effect, or edema. Laboratory Results WBC 5.61 10^3/uL (3.29-11.43) 12/15/23 05:23 RBC 5.05 10^6/uL (3.85-5.65) 12/15/23 05:23 Hgb 15.20 g/dL (11.27-16.99) 12/15/23 05:23 Hct 46.0 % (37-53) 12/15/23 05:23 MCV 91.1 fl (82-101) 12/15/23 05:23 MCH 30.1 pg (27-33) 12/15/23 05:23 MCHC 33.0 g/dL (30-55) 12/15/23 05:23 RDW 13.7 % (12.1-15.1) 12/15/23 05:23 Plt Count 198 10^3/cmm (157-399) 12/15/23 05:23 MPV 10.7 fL (7.4-10.4) H 12/15/23 05:23 Neut % (Auto) 52.6 % 12/15/23 05:23 Lymph % (Auto) 26.0 % 12/15/23 05:23 [place] % (Auto) 11.2 % 12/15/23 05:23 Eos % (Auto) 8.9 % 12/15/23 05:23 Baso % (Auto) 1.1 % 12/15/23 05:23 Neut # (Auto) 2.95 10^3/uL (1.8-7.7) 12/15/23 05:23 Lymph # (Auto) 1.5 10^3/uL (0.8-4.8) 12/15/23 05:23 [place] # (Auto) 0.6 10^3/uL (0.2-0.9) 12/15/23 05:23 Eos # (Auto) 0.5 10^3/uL (0.0-0.8) 12/15/23 05:23 Baso # (Auto) 0.1 10^3/uL (0.0-0.1) 12/15/23 05:23 Nucleated RBC % (auto) 0 % 12/15/23 05:23 Nucleated RBCs # 0.0 /100WBC 12/15/23 05:23 Specimen Type Arterial 12/13/23 19:46 Sample Site Radial, right 12/13/23 19:46 ABG pH 7.38 (7.35-7.45) 12/13/23 19:46 ABG pCO2 42.6 mmHg (35-45) 12/13/23 19:46 ABG pO2 76.3 mmHg (80.0-100.0) L 12/13/23 19:46 ABG HCO3 25.0 mmol/L (22-26) 12/13/23 19:46 ABG O2 Saturation 95.6 12/13/23 19:46 ABG Base Excess -0.4 mmol/L (-2.0-2.0) 12/13/23 19:46 Alli Test Pos 12/13/23 19:46 A-a O2 Gradient 2.6 mmHg (5-10) L 12/13/23 19:46 Hematocrit 48.8 % (42-52) 12/13/23 19:46 Hgb O2 Saturation 93.8 % (95-100) L 12/13/23 19:46 Carboxyhemoglobin 1.3 %THgb (0.4-20.1) 12/13/23 19:46 Methemoglobin 0.5 % (0.4-1.5) 12/13/23 19:46 Total Hemoglobin 15.9 g/dL (14-18) 12/13/23 19:46 Sodium 137.0 mmol/L (131-143) 12/13/23 19:46 Potassium 3.6 mmol/L (3.5-5.0) 12/13/23 19:46 Glucose 94.0 mg/dL (70-115) 12/13/23 19:46 Ionized Calcium 1.1 mmol/L (1.1-1.4) 12/13/23 19:46 O2 Delivery Device Room air 12/13/23 19:46 Dining Services Director ID [email or web address] 12/13/23 19:46 Sodium 140 mmol/L (136-145) 12/15/23 05:23 Potassium 4.0 mmol/L (3.5-5.1) 12/15/23 05:23 Chloride 105 mmol/L (98-107) 12/15/23 05:23 Carbon Dioxide 26 mmol/L (22-29) 12/15/23 05:23 Anion Gap 13.0 (5-19) 12/15/23 05:23 BUN 23 mg/dL (8-23) 12/15/23 05:23 Creatinine 1.1 mg/dL (0.7-1.2) 12/15/23 05:23 GFR Calculation Not Reportable 12/15/23 05:23 Glucose 134 mg/dL (65-115) H 12/15/23 05:23 POC Glucose 171 mg/dL (70-110) H 12/15/23 09:44 Estimat Average Glucose 186 12/14/23 02:04 Hemoglobin A1c 8.1 % (4.0-6.0) H 12/14/23 02:04 Calculated Osmolality 296 mOsm/kg (285-295) H 12/15/23 05:23 Lactic Acid 3.3 mmol/L (0.5-2.2) H 12/13/23 19:48 Lactic Acid (Sepsis) 1.3 mmol/L (0.5-2.2) 12/13/23 22:47 Calcium 8.5 mg/dL (8.5-10.5) 12/15/23 05:23 Phosphorus 4.1 mg/dL (2.5-4.5) 12/14/23 02:04 Magnesium 2.1 mg/dL (1.7-2.3) 12/14/23 02:04 Iron 84 ug/dL (59-158) 12/13/23 19:48 TIBC 307 mcg/dl 12/13/23 19:48 % Saturation 27.3 % (20-50) 12/13/23 19:48 Unsat Iron Binding 223 ug/dL (112-347) 12/13/23 19:48 Total Bilirubin 0.4 mg/dL (0.15-1.2) 12/15/23 05:23 AST 19 U/L (0-40) 12/15/23 05:23 ALT 25 U/L (0-41) 12/15/23 05:23 Alkaline Phosphatase 68 U/L (40-130) 12/15/23 05:23 Troponin T Baseline 39 ng/L (0-15) H 12/13/23 19:48 Troponin T 120 Minute 33.33 ng/L (0-15) H 12/13/23 21:37 Delta Troponin T -5.67 ABS# (0-10) L 12/13/23 21:37 Troponin T Hi Sens 6Hr 40.60 ng/L (0-15) H 12/14/23 02:04 Troponin T Hi Sens 6Hr Delta 1.60 ng/L (0-12) 12/14/23 02:04 C-Reactive Protein 3.0 mg/L (0.0-4.9) 12/13/23 19:48 Total Protein 6.2 g/dL (6.6-8.7) L 12/15/23 05:23 Albumin 3.5 g/dL (3.5-5.2) 12/15/23 05:23 Globulin 2.7 g/dL (1.3-4.6) 12/15/23 05:23 Triglycerides 96 mg/dL (0-150) 12/14/23 02:04 Cholesterol 84 mg/dL (0-200) 12/14/23 02:04 LDL Cholesterol, Calc 39 mg/dL (50-129) L 12/14/23 02:04 HDL Cholesterol 26 mg/dL (60-100) L 12/14/23 02:04 LDL/HDL Ratio 1.50 RATIO (0.00-3.22) 12/14/23 02:04 Cholesterol/HDL Ratio 3.23 mg/dL (1.0-5.00) 12/14/23 02:04 Vitamin B12 696 pg/mL (232-1245) 12/13/23 19:48 Folate 15.0 ng/mL (4.5-32.2) 12/14/23 02:04 Procalcitonin 0.11 ng/mL (0-0.5) 12/13/23 19:48 TSH 1.70 uIU/mL (0.27-4.20) 12/13/23 19:48 Urine Color Yellow (Yellow) 12/13/23 22: Urine Appearance Clear (CLEAR) 12/13/23 22: Urine pH 6.5 (5-7) 12/13/23 22:27 Ur Specific Thurmond 1.000 (1.005-1.030) L 12/13/23 22:27 Urine Protein Neg (Negative) 12/13/23 22:27 Urine Glucose (UA) 4+ (Normal) H 12/13/23 22:27 Urine Ketones Negative (Negative) 12/13/23 22:27 Urine Blood Neg (Negative) 12/13/23 22:27 Urine Nitrate Negative (Negative) 12/13/23 22: Urine Bilirubin Neg (Negative) 12/13/23 22:27 Urine Urobilinogen Neg mg/dL (Negative) 12/13/23 22:27 Ur Leukocyte Esterase Negative (Negative) 12/13/23 22:27 Urine RBC 0-4 /hpf (0-2) H 12/13/23 20:01 Urine WBC 0-4 /hpf (0-5) H 12/13/23 20:01 Ur Squamous Epith Cells 0-4 /hpf (0-5) H 12/13/23 20:01 Amorphous Sediment Not Reportable 12/13/23 20:01 Urine Bacteria Trace /hpf (NONE) 12/13/23 20:01 Urine Mucus Trace /hpf 12/13/23 20:01 Urine Opiates Screen Negative ng/mL (Negative) 12/13/23 20:01 Ur Barbiturates Screen Negative ng/mL (Negative) 12/13/23 20:01 Ur Phencyclidine Scrn Negative ng/mL (Negative) 12/13/23 20:01 Ur Amphetamines Screen Negative ng/mL (Negative) 12/13/23 20:01 U Benzodiazepines Scrn Negative ng/mL (Negative) 12/13/23 20:01 Urine Cocaine Screen Negative ng/mL (Negative) 12/13/23 20:01 U Marijuana (THC) Screen Negative ng/mL (Negative) 12/13/23 20:01 Ethyl Alcohol < 10 mg/dL (0-10) 12/13/23 19:48 Vitals Last Vital Signs Temp 97.9 F 12/15/23 12:00 Pulse 63 12/15/23 12:00 Resp 19 H 12/15/23 12:00 BP 131/79 12/15/23 12:00 Pulse Ox 96 12/15/23 11:53 O2 Del Method Room Air 12/15/23 11:53 O2 Flow Rate 2 12/13/23 19:30 Discharge Plan Discharge Patient Disposition: Home Condition: Stable Prescriptions: Continued methocarbamol 500 mg tablet 1 ea PO TID PRN (Reason: muscle spasms) zolpidem 10 mg tablet 1 tab PO BEDTIME losartan 50 mg tablet 1 tab PO BID (DME) Diabetic Shoes with 3 sets of insoles See Rx Instructions .Route .MEDSUPPLY Qty: 2 0RF Rx Instructions: As directed by [facility] in [place] Lyrica 150 mg Capsule 150 mg PO TID PRN (Reason: Pain) atorvastatin 40 mg Tablet 40 mg PO BEDTIME trazodone 50 mg Tablet 50 mg PO BEDTIME Glucosamine 500 mg Tablet See Rx Instructions .ROUTE .COMPLEX Rx Instructions: unknown dose; taken BID with meals Vitamin B-12 500 mcg Tablet 500 mcg PO DAILY magnesium 100 mg Tablet 400 mg PO DAILY aspirin 81 mg Tablet See Rx Instructions .ROUTE .COMPLEX Rx Instructions: 81 mg orally one daily on Saturday, Saturday, Saturday D-3-5 125 mcg (5,000 unit) Capsule 125 mcg PO DAILY Rx Instructions: unknown dose B Complex Capsule 1 cap PO BID Rx Instructions: unknown dose Jardiance 25 mg Tablet 25 mg PO DAILY ginkgo biloba 40 mg Tablet 40 mg PO BEDTIME Rx Instructions: unknown dose; give with meal/snack oxycodone-acetaminophen 10-325 mg tablet 1 tab PO QID PRN (Reason: Pain) Qty: 10 0RF Changed insulin aspart U-100 100 unit/mL (3 mL) insulin pen 1 sliding scale dose SUBCUT TID Qty: 15 0RF Protocol: Insulin Corrective High-Dose Regimen Condition: Fingerstick Blood Glucose Dose/Route: Insulin Units Condition: 141-180 mg/dl Dose/Route: 6 units/SQ Condition: 181-220 mg/dl Dose/Route: 8 units/SQ Condition: 221-260 mg/dl Dose/Route: 10 units/SQ Condition: 261-300 mg/dl Dose/Route: 12 units/SQ Condition: 301-350 mg/dl Dose/Route: 14 units/SQ Condition: 351-400 mg/dl Dose/Route: 16 units/SQ Condition: greater than 400 mg/dl Dose/Route: 18 units/SQ Rx Instructions: 140-180-4U; 181-220?6U; 221?260-8U; 261?320-10U; 321?360-12U; 361?400-14U Discontinued insulin glargine [Lantus Solostar U-100 Insulin] 100 unit/mL (3 mL) insulin pen 70 unit SUBCUT DAILY metformin 1,000 mg tablet 0.5 tab PO BID chlorthalidone 50 mg tablet 1 tab PO DAILY metoprolol succinate 50 mg tablet extended release 24 hr 1 tab PO BID Discharge Orders: Discharge Order (Routine); Ordered 12/15/23 Ordered By: Roland Hunt Other Ambulatory Orders: MCT/Event Monitor 21 Days (Routine) Timeframe: 1 Week Facility: [facility] - Location: Radiology Ordered By: Roland Hunt Sleep Study W Sleep Stage (Routine) Timeframe: 1 Week Facility: [facility] - Location: [facility] Ordered By: Roland Hunt Referrals: Jennifer Bazzi MD [Primary Care Provider] - 3 weeks (Please contact Your primary care doctor at [phone] to schedule a hospital stay follow-up.) Tee Byrne MD [Physician] - 2 weeks Discharge Diet: Cardiac and Diabetic Discharge Activity: Resume usual activity and Increase activity as tolerated Patient Instructions: Altered Mental Status (ED), Opioid Safety Activity Restrictions/Additional Instructions: Do not take your long-acting insulin/Lantus anymore. Only take Humalog/slow acting insulin as per sliding scale premeals. Your target fasting blood sugar should be less than 120, premeals which is prelunch and predinner should be less than 140. Continue taking your Jardiance as before. Do not take metformin. Please maintain a blood sugar diary for next 2 weeks and follow-up with a primary care provider for further adjustment of insulin dose. Do not take metoprolol and chlorthalidone anymore. Only take your home dose of losartan. Please check your blood pressure daily at home maintain a blood pressure diary and follow-up with your primary care provider for further adjustment of medications. You should have a sleep study as an outpatient. Please follow-up for an event monitor given episodes of bradycardia overnight. Discharge Attestations Time Spent in Discharge Care*: greater than 30 min Specific Discharge Activities: educating patient, educating and/or supporting family/caregiver, discussing with pcp/other providers, discussing with protective services case worker/social workers/dc planners, documenting/other paperwork and evaluating patient/reviewing data Status at Discharge: Cognitive status at discharge: cognitively intact, Behavioral status at discharge: cooperative, Functional status at discharge: independent ambulation, Overall status at discharge: patient is back to baseline Quality Metrics Clinical Quality Measures [ No reported AMI, CVA or VTE this stay] Coding Level of Care Code 37579 Total time (in minutes) for Discharge: 60 Diagnoses Syncope R55 Hypoglycemia E16.2 Type 2 diabetes mellitus E11.9 Hypertension I10 Bradycardia R00.1 Dehydration E86.0 Hyperlipidemia E78.5
== END 2023-12-15 14:22 | disposition home or self-care (01) | DRG 639 ==
LOC: ER 21:21 → MEDSURG 21:24
PROVIDERS: Student in an Organized Health Care Education/Training Program; Admitting Provider Student in an Organized Health Care Education/Training Program; Emergency Provider Emergency Medicine; PCP Family Medicine; Visit Provider Student in an Organized Health Care Education/Training Program
DX: E11.649 Type 2 diabetes mellitus with hypoglycemia without coma (principal); R00.1 Bradycardia, unspecified; I10 Essential (primary) hypertension; E86.0 Dehydration; E78.5 Hyperlipidemia, unspecified; Z79.4 Long term (current) use of insulin; Z79.84 Long term (current) use of oral hypoglycemic drugs; Z79.82 Long term (current) use of aspirin
CPT/HCPCS: 36415; 36416; 70450; 71045; 80051; 80053; 80061; 80306; 80307; 81001; 81003; 82330; 82607; 82746; 82805; 82962; 83036; 83540; 83550; 83605; 83735; 84100; 84145; 84443; 84484; 85025; 86140; 87040; 93005; 94664; 96372; 96374; 99285; C9113; J1644; J1815; J2310; J3475; J7042; J7799

== ENCOUNTER 2024-01-21 11:11 | Emergency (ER) | payer MEDICARE, SELFPAY ==
[2024-01-21] VITALS (22 sets, daily range): BP systolic 115–165; BP diastolic 55–100; PULSE 65–86; RESP 10–22; TEMP 36.4; O2SAT 91–100; BMI 32.3
--- NOTE | 2024-01-21 11:16 | XR_ITS ---
WS: [id number] XR chest 1V portable [id number] REASON FOR EXAM: cp FINDINGS: Chest is unchanged compared to 12/13/2023. Moderate tortuosity and ectasia of the thoracic aorta. Mild cardiomegaly. There is calcified granulomatous disease bilaterally. No acute pulmonary parenchymal or pleural abnormality is identified. The right hilum appears prominent. This could be the result of overlapping normal structures however a mass in the right hilum or a mass anterior or posterior to the right hilum that is superimposed gege uld be considered. XR/XR chest 1V portable [id number] IMPRESSION: No acute chest abnormality. Prominent right hilum as described above. If this patient has a significant smo naz history consider a need for CT scan of the chest with contrast.
--- NOTE | 2024-01-21 11:17 | ECG_ITS ---
[facility] Test Date: 2024-01-21 Pat Name: Mitesh Batista Department: Room: Gender: Male Armed Security Professional: : 1950 Requested By: Johnson Rajan Order Number: [id number] Ciara MD: Brian Downey M.D. Measurements Intervals [place] Rate: 86 P: -69 ME: 150 QRS: 18 QRSD: 94 T: 34 QT: 389 QTc: 466 Interpretive Statements ECTOPIC ATRIAL RHYTHM NONSPECIFIC T-WAVE ABNORMALITY Compared to ECG 12/14/2023 04:04:03 Ectopic atrial rhythm now present T-wave abnormality now present Sinus bradycardia no longer present Electronically Signed On 01-21-2024 15:28:57 CDT by Brian Downey M.D. [email or web address]
[2024-01-21 11:39] LABS: Basophils # 0.1 10^3/uL (0.0-0.1); Basophils % 0.6 %; Eosinophils # 0.7 10^3/uL (0.0-0.8); Eosinophils % 9.1 %; Hematocrit 48.1 % (37-53); Lymphocytes # 1.4 10^3/uL (0.8-4.8); Lymphocytes % 17.5 %; Mean Corpuscular HGB Conc 33.3 g/dL (30-55); Mean Corpuscular Hemoglobin 30.1 pg (27-33); Mean Corpuscular Volume 90.6 fl (82-101); Mean Platelet Volume 10.6 fL (7.4-10.4); Monocytes # 0.6 10^3/uL (0.2-0.9); Monocytes % 7.1 %; Neutrophils # 5.23 10^3/uL (1.8-7.7); Neutrophils % 65.4 %; Nucleated Red Blood Cells % 0 %; Platelet Count 221 10^3/cmm (157-399); Red Blood Count 5.31 10^6/uL (3.85-5.65); Red Cell Distribution Width 13.5 % (12.1-15.1)
--- NOTE | 2024-01-21 11:43 | ED_ITS ---
HPI - Extremity Problem 2 General: Chief complaint: Extremity Problem,Nontraumatic Stated complaint: CP Time Seen by Provider: 01/21/24 11:16 Source: EMS Mode of arrival: EMS Limitations: no limitations History of Present Illness: 73-year-old male states that he had had 2 heart stents placed at [facility] last week states he is at clinic today and he been having some left- sided chest pain since last night he states it has been a sharp pain some worsening with movement of his left arm. He denies any shortness of breath or vomiting. Patient was given aspirin nitro still having some pain at this time. Associated symptoms: Reports chest pain; Deny fever(s) or rash Review of Systems 2 Const: Denies: fever(s), chills, body aches or change in appetite Eyes: Denies: eye discomfort ENMT: Denies: throat pain or dental pain Card: Reports: chest pain Resp: Denies: dyspnea GI: Denies: abdominal pain, nausea, vomiting or diarrhea : Denies: dysuria Musc: Denies: neck pain or back pain Skin/Breast: Denies: rash Neuro: Denies: headache(s) PFSH ED 2 PFSH: Medical History (Updated 01/21/24 @ 17:03 by Johnson Rajan MD) Obesity (BMI 30.0-34.9) Hypertension Long-term insulin use Type 2 diabetes mellitus Hyperlipidemia Physical Exam 2 Const: COMMON NORMALS: no acute distress, patient oriented x3 and healthy appearing HENMT: COMMON NORMALS: normocephalic and atraumatic HEAD & SCALP: n ormocephalic and atraumatic Eye: COMMON NORMALS: Equal, round and reactive pupils present and EOMs intact bilaterally PUPIL: Yes Equal, round and reactive pupils present Neck/C-Spine: COMMON NORMALS: full ROM and supple Chest: COMMONS NORMALS: normal inspection of the chest and normal palpation of entire chest wall Resp: COMMON NORMALS: normal respiratory effort, No retractions, No use of accessory muscles and clear to auscultation bilaterally AUSCULTATION: clear to auscultation bilaterally Cardio: COMMON NORMALS: regular rate, regular rhythm and No murmurs present (Cardio) RATE: regular rate RHYTHM: regular rhythm GI: COMMON NORMALS: Normal to inspection, nondistended, normoactive bowel sounds present, Soft to palpation, non-tender and no masses PALPATION: Yes Soft to palpation Extremity: COMMON NORMALS: normal to inspection and full ROM Neuro: COMMON NORMALS: patient oriented x3, moves all extremities and no focal motor deficits Psych: COMMON NORMALS: mental status grossly normal, Normal thought process present and cooperative THOUGHT PROCESS: Normal thought process present Skin: COMMON NORMALS: no rashes or lesions noted and no wounds GENERAL SKIN EXAM: no rashes or lesions noted Course 2 Vital Signs: Vital signs: Vital Signs Temperature 97.6 F 01/21/24 11:17 Pulse Rate 68 01/21/24 16:30 Respiratory Rate 12 01/21/24 16:30 Blood Pressure 138/78 01/21/24 16:30 Pulse Oximetry 95 01/21/24 16:30 Oxygen Delivery Me thod Room Air 01/21/24 16:30 MDM - Extremity (Nontraumatic) Medical Decision Making Patient presents here with chest pain his CTA here is normal no pulmonary embolism 2-hour troponin went down he had 2 more episodes of pain here though any recent stent placement will transfer him to [facility] for his chest pains. Transferred there for continuity of care as his cardiology teams and he had a recent stent there Medical Records I reviewed the patient's medical records. Lab Data I reviewed the patient's lab results. 01/21/24 11:33 01/21/24 11:33 Radiology Impressions Chest X-Ray 01/21/24 11:16 IMPRESSION: No acute chest abnormality. Prominent right hilum as described above. If this patient has a significant smoking history consider a need for CT scan of the chest with contrast. Chest CTA 01/21/24 12:30 IMPRESSION: 1. No pulmonary embolism. 2. No pneumonia. 3. Mild LEFT heart enlargement. Laboratory Results WBC 8.00 10^3/uL (3.29-11.43) 01/21/24 11:33 RBC 5.31 10^6/uL (3.85-5.65) 01/21/24 11:33 Hgb 16.00 g/dL (11.27-16.99) 01/21/24 11:33 Hct 48.1 % (37-53) 01/21/24 11:33 MCV 90.6 fl (82-101) 01/21/24 11:33 MCH 30.1 pg (27-33) 01/21/24 11:33 MCHC 33.3 g/dL (30-55) 01/21/24 11:33 RDW 13.5 % (12.1-15.1) 01/21/24 11:33 Plt Count 221 10^3/cmm (157-399) 01/21/24 11:33 MPV 10.6 fL (7.4-10.4) H 01/21/24 11:33 Neut % (Auto) 65.4 % 01/21/24 11:33 Lymph % (Auto) 17.5 % 01/21/24 11:33 [place] % (Auto) 7.1 % 01/21/24 11:33 Eos % (Auto) 9.1 % 01/21/24 11:33 Baso % (Auto) 0.6 % 01/21/24 11:33 Neut # (Auto) 5.23 10^3/uL (1.8-7.7) 01/21/24 11:33 Lymph # (Auto) 1.4 10^3/uL (0.8-4.8) 01/21/24 11:33 [place] # (Auto) 0.6 10^3/uL (0.2-0.9) 01/21/24 11:33 Eos # (Auto) 0.7 10^3/uL (0.0-0.8) 01/21/24 11:33 Baso # (Auto) 0.1 10^3/uL (0.0-0.1) 01/21/24 11:33 Nucleated RBC % (auto) 0 % 01/21/24 11:33 Nucleated RBCs # 0.0 /100WBC 01/21/24 11:33 Sodium 139 mmol/L (136-145) 01/21/24 11:33 Potassium 3.5 mmol/L (3.5-5.1) 01/21/24 11:33 Chloride 101 mmol/L (98-107) 01/21/24 11:33 Carbon Dioxide 22 mmol/L (22-29) 01/21/24 11:33 Anion Gap 19.5 (5-19) H 01/21/24 11:33 BUN 24 mg/dL (8-23) H 01/21/24 11:33 Creatinine 1.0 mg/dL (0.7-1.2) 01/21/24 11:33 GFR Calculation Not Reportable 01/21/24 11:33 Glucose 200 mg/dL (65-115) H 01/21/24 11:33 Calculated Osmolality 298 mOsm/kg (285-295) H 01/21/24 11:33 Calcium 8.9 mg/dL (8.5-10.5) 01/21/24 11:33 Total Bilirubin 0.7 mg/dL (0.15-1.2) 01/21/24 11:33 AST 17 U/L (0-40) 01/21/24 11:33 ALT 24 U/L (0-41) 01/21/24 11:33 Alkaline Phosphatase 75 U/L (40-130) 01/21/24 11:33 Troponin T Baseline 50 ng/L (0-15) H 01/21/24 11:33 Troponin T 120 Minute 45.15 ng/L (0-15) H 01/21/24 13:25 Delta Troponin T -4.85 ABS# (0-10) L 01/21/24 13:25 Total Protein 6.7 g/dL (6.6-8.7) 01/21/24 11:33 Albumin 3.9 g/dL (3.5-5.2) 01/21/24 11:33 Globulin 2.8 g/dL (1.3-4.6) 01/21/24 11:33 Lipase 14 U/L (13-60) 01/21/24 11:33 All radiology interpretation(s) finalized by discharge EKG Data EKG 1: I personally reviewed and interpreted this EKG as follows: EKG interpretation date: 01/21/24 EKG interpretation time: 11:18 Interpretation: hr [address] elevation qrs 94 qtc 432 Discharge Plan Discharge Patient Disposition: Xfer Short-Term Hosp Clinical Impression: Chest pain Condition: Stable Prescriptions: No Action methocarbamol 500 mg tablet 1 ea PO TID PRN (Reason: muscle spasms) zolpidem 10 mg tablet 1 tab PO BEDTIME losartan 50 mg tablet 1 tab PO BID (DME) Diabetic Shoes with 3 sets of insoles See Rx Instructions .Route .MEDSUPPLY Qty: 2 0RF Rx Instructions: As directed by [facility] in [place] pregabalin [Lyrica] 150 mg Capsule 150 mg PO TID PRN (Reason: Pain) atorvastatin 40 mg Tablet 40 mg PO BEDTIME trazodone 50 mg Tablet 50 mg PO BEDTIME glucosamine sulfate [Glucosamine] 500 mg Tablet 500 mg PO BID cyanocobalamin (vitamin B-12) [Vitamin B-12] 500 mcg Tablet 500 mcg PO DAILY cholecalciferol (vitamin D3) 125 mcg (5,000 unit) Capsule 125 mcg PO DAILY vitamin B complex Capsule 1 cap PO BID Jardiance 25 mg Tablet 25 mg PO QAM ginkgo biloba 40 mg Tablet 40 mg PO BEDTIME insulin aspart U-100 100 unit/mL (3 mL) insulin pen 1 sliding scale dose SUBCUT TID Qty: 15 0RF Protocol: Insulin Corrective High-Dose Regimen Condition: Fingerstick Blood Glucose Dose/Route: Insulin Units Condition: 141-180 mg/dl Dose/Route: 6 units/SQ Condition: 181-220 mg/dl Dose/Route: 8 units/SQ Condition: 221-260 mg/dl Dose/Route: 10 units/SQ Condition: 261-300 mg/dl Dose/Route: 12 units/SQ Condition: 301-350 mg/dl Dose/Route: 14 units/SQ Condition: 351-400 mg/dl Dose/Route: 16 units/SQ Condition: greater than 400 mg/dl Dose/Route: 18 units/SQ Rx Instructions: 140-180-4U; 181-220?6U; 221?260-8U; 261?320-10U; 321?360-12U; 361?400-14U oxycodone-acetaminophen 10-325 mg tablet 1 tab PO QID PRN (Reason: Pain) Qty: 10 0RF Aspir-81 81 mg Tablet,Delayed Release (Dr/Ec) 81 mg PO DAILY magnesium 200 mg Tablet 200 mg PO DAILY clopidogrel 75 mg tablet 75 mg PO DAILY amlodipine 5 mg tablet 5 mg PO DAILY nitroglycerin 0.4 mg tablet, sublingual See Rx Instructions .ROUTE .COMPLEX Rx Instructions: DISSOLVE 1 TABLET UNDER THE TONGUE EVERY 5 MINUTES NEEDED FOR CHEST PAIN. duloxetine 30 mg capsule,delayed release(DR/EC) 30 mg PO DAILY Referrals: Jennifer Bazzi MD [Primary Care Provider] - Coding Level of Care Code ED Toll Operator for g Julieta
[2024-01-21 11:56] LABS: Troponin(5th) Baseline 50 ng/L (0-15)
[2024-01-21 12:00] LABS: Alanine Aminotransferase 24 U/L (0-41); Albumin Level 3.9 g/dL (3.5-5.2); Alkaline Phosphatase 75 U/L (40-130); Anion Gap 19.5 (5-19); Aspartate Amino Transferase 17 U/L (0-40); Blood Urea Nitrogen 24 mg/dL (8-23); Calcium 8.9 mg/dL (8.5-10.5); Carbon Dioxide 22 mmol/L (22-29); Chloride 101 mmol/L (98-107); Creatinine Clr Calc Pharmacy 100.7721; Globulin 2.8 g/dL (1.3-4.6); Glucose 200 mg/dL (65-115); Lipase 14 U/L (13-60); Osmolality Calculated 298 mOsm/kg (285-295); Potassium 3.5 mmol/L (3.5-5.1); Sodium 139 mmol/L (136-145); Total Bilirubin 0.7 mg/dL (0.15-1.2); Total Protein 6.7 g/dL (6.6-8.7)
[2024-01-21] MEDS: ondansetron 2 mg/ML SDV 2 mL 4 MG IVP (12:02)
[2024-01-21] MEDS: morphine 4 mg/mL SDV 1 mL IVP (12:10)
--- NOTE | 2024-01-21 12:30 | CT_ITS ---
WS: [id number] CT CHEST ANGIOGRAPHY WITH REFORMATS HISTORY: cp TECHNIQUE: Contiguous axial images are obtained through the chest during arterial injection of intrav enous contrast. Images are reconstructed to evaluate the pulmonary arteries. MIP imaging also reviewe d. All CT scans at [facility] use at least one of these dose optimization techniques: automat ed exposure control; mA and/or kV adjustment per patient size (includes targeted exams where dose is matched to clinical indication); or iterative reconstruction. CONTRAST: Omnipaque 350; 100 mL IV. DLP: 1369.91 mGy.cm COMPARISON: None available. Good opacification of the pulmonary arteries. No central pulmonary embolism. No emboli noted to the s egmental branches. Normal size thoracic aorta with mild atherosclerotic plaque. Mild LEFT heart enlar gement with no RIGHT heart strain. No pericardial or pleural effusions. Lungs are clear. No pneumonia . No pneumothorax. Small mediastinal and hilar lymph nodes with no adenopathy. Spleen is top normal size at 14.5 cm in length. Straightening of the normal thoracic kyphosis with spondylosis. Hepatic steatosis. CT/CT angio chest PE protcl [id number] IMPRESSION: 1. No pulmonary embolism. 2. No pneumonia. 3. Mild LEFT heart enlargement.
[2024-01-21] MEDS: iohexol 350 mg/mL 500 mL Btl (per mL) IV (12:59)
--- NOTE | 2024-01-21 13:17 | ECG_ITS ---
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 Measurements Intervals [place] Rate: 81 P: -73 MS: 162 QRS: 33 QRSD: 89 T: -24 QT: 368 QTc: 427 Interpretive Statements ECTOPIC ATRIAL RHYTHM NONSPECIFIC T-WAVE ABNORMALITY Compared to ECG 01/21/2024 11:18:39 No significant changes Electronically Signed On 01-21-2024 15:30:04 CDT by Brian Downey M.D. [email or web address] medical [id number]
[2024-01-21] MEDS: HYDROmorphone 1 mg/mL INJ 1 mL IVP ×2 (13:30→20:39)
[2024-01-21] MEDS: nitroglycerin 0.4 mg sublingual Tablet SUBLINGUAL (13:51)
[2024-01-21 13:56] LABS: Troponin 5 2HR 45.15 ng/L (0-15)
[2024-01-21 14:10] LABS: Troponin 5 2HR Delta -4.85 ABS# (0-10)
--- NOTE | 2024-01-21 14:31 | PC.PHAR ---
SPOUSE STATES LAST STAY HERE PT WAS TAKEN OFF THE FOLLOWING MEDS: LANTUS SOLOSTAR INSULIN, METFORMIN 1,000MG, METOPROLOL SUCC. ER 50MG, AND CHLORTHALIDONE 50MG.
--- NOTE | 2024-01-21 16:39 | ECG_ITS ---
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 Measurements Intervals [place] Rate: 68 P: 76 NE: 176 QRS: 6 QRSD: 97 T: 30 QT: 318 QTc: 340 Interpretive Statements SINUS RHYTHM WITH FREQUENT VENTRICULAR PREMATURE COMPLEXES IN A BIGEMINAL PATTERN NONSPECIFIC T-WAVE ABNORMALITY Compared to ECG 01/21/2024 11:48:58 Ventricular premature complex(es) now present Ectopic atrial rhythm no longer present T-wave abnormality still present Electronically Signed On 01-21-2024 16:45:18 CDT by Brian Downey M.D. [id number]
[2024-01-21 18:25] LABS: Troponin 5 6HR 52.06 ng/L (0-15); Troponin 5 6HR Delta 2.06 ng/L (0-12)
--- NOTE | 2024-01-21 18:36 | PC.NURSE ---
report called to [facility], Mayte Rogers RN called report to at 1830.
--- NOTE | 2024-01-21 19:59 | PC.NURSE ---
pt requesting pain meds, rates pain 4 or [address] Rajan notified.
--- NOTE | 2024-01-21 21:47 | PC.NURSE ---
this nurse spoke with daughter Dara. pts daughter was informed that EMS was here and transferring the pt to [facility]. Pts daughter stated that she would tell the pts and arrange for her to get to [facility]
== END 2024-01-21 21:56 | disposition short-term general hospital (02) ==
PROVIDERS: Emergency Provider Emergency Medicine; PCP Family Medicine
DX: R07.9 Chest pain, unspecified (principal); Z79.02 Long term (current) use of antithrombotics/antiplatelets; Z79.82 Long term (current) use of aspirin; Z79.4 Long term (current) use of insulin; I10 Essential (primary) hypertension; E11.9 Type 2 diabetes mellitus without complications; E78.5 Hyperlipidemia, unspecified
CPT/HCPCS: 36415; 71045; 71275; 80053; 83690; 84484; 85025; 93005; 96374; 96375; 96376; 99285; J1170; J2270; J2405; Q9967

== ENCOUNTER → 2024-03-12 09:22 | Outpatient (BNVA) | payer MEDICARE, SELFPAY | PROVIDERS: PCP Family Medicine; Visit Provider Internal Medicine | DX: E11.42 Type 2 diabetes mellitus with diabetic polyneuropathy (principal); E78.5 Hyperlipidemia, unspecified; E11.649 Type 2 diabetes mellitus with hypoglycemia without coma; Z79.4 Long term (current) use of insulin | CPT/HCPCS: 36415; 80053; 80061; 82044; 83036; 84681; 86337; 86341; 99204 ==

== ENCOUNTER → 2024-04-13 10:30 | Outpatient (BNVA) | payer MEDICARE, SELFPAY | PROVIDERS: PCP Family Medicine; Visit Provider Internal Medicine | DX: E11.42 Type 2 diabetes mellitus with diabetic polyneuropathy (principal); E78.5 Hyperlipidemia, unspecified; E11.649 Type 2 diabetes mellitus with hypoglycemia without coma; Z79.4 Long term (current) use of insulin; Z79.84 Long term (current) use of oral hypoglycemic drugs | CPT/HCPCS: 99214 ==

== ENCOUNTER → 2024-07-23 10:00 | Outpatient (BNVA) | payer MEDICARE, SELFPAY | PROVIDERS: PCP Family Medicine; Visit Provider Internal Medicine | DX: E11.42 Type 2 diabetes mellitus with diabetic polyneuropathy (principal); E16.2 Hypoglycemia, unspecified; E78.5 Hyperlipidemia, unspecified; E11.9 Type 2 diabetes mellitus without complications | CPT/HCPCS: 99214 ==

== ENCOUNTER 2024-10-15 13:00 | Outpatient (CLI) | payer MEDICARE, SELFPAY ==
[2024-10-15 13:41] LABS: Estmated Average Glucose 229; Hemoglobin A1C 9.6 % (4.0-6.0)
[2024-10-15 13:44] LABS: Alanine Aminotransferase 28 U/L (0-41); Albumin Level 4.4 g/dL (3.5-5.2); Alkaline Phosphatase 92 U/L (40-130); Anion Gap 17.5 (5-19); Aspartate Amino Transferase 20 U/L (0-40); Blood Urea Nitrogen 17 mg/dL (8-23); Calcium 9.1 mg/dL (8.5-10.5); Carbon Dioxide 26 mmol/L (22-29); Chloride 102 mmol/L (98-107); Chol HDL Ratio 3.24 mg/dL (1.0-5.00); Cholesterol 107 mg/dL (0-200); Glucose 293 mg/dL (65-115); HDL Cholesterol 33 mg/dL (60-100); LDL Cholesterol Calculated 46 mg/dL (50-129); LDL HDL Ratio 1.39 RATIO (0.00-3.22); Osmolality Calculated 304 mOsm/kg (285-295); Potassium 4.5 mmol/L (3.5-5.1); Sodium 141 mmol/L (136-145); Total Bilirubin 0.8 mg/dL (0.15-1.2); Total Protein 7.4 g/dL (6.6-8.7); Triglycerides 141 mg/dL (0-150)
[2024-10-15 13:45] LABS: Creatinine Urine, Random 48 mg/dL (39-259); Microalbumin Random Urine 9 ug/dL (0-20)
[2024-10-15 13:46] LABS: Microalbum Creatinine Ratio Ur 188 mg/dL (0-20)
== END 2024-10-15 13:01 | disposition home or self-care (01) ==
PROVIDERS: PCP Family Medicine; Visit Provider Internal Medicine
DX: E11.42 Type 2 diabetes mellitus with diabetic polyneuropathy (principal); E16.2 Hypoglycemia, unspecified; E78.5 Hyperlipidemia, unspecified
CPT/HCPCS: 36415; 80053; 80061; 82044; 83036

== ENCOUNTER → 2024-10-20 09:47 | Outpatient (BNVA) | payer MEDICARE, SELFPAY | PROVIDERS: PCP Family Medicine; Visit Provider Internal Medicine | DX: E11.42 Type 2 diabetes mellitus with diabetic polyneuropathy (principal); E78.5 Hyperlipidemia, unspecified; E16.2 Hypoglycemia, unspecified | CPT/HCPCS: 99214 ==

== ENCOUNTER → 2025-01-26 10:51 | Outpatient (BNVA) | payer MEDICARE, SELFPAY | PROVIDERS: PCP Family Medicine; Visit Provider Podiatrist Foot & Ankle Surgery | DX: E11.42 Type 2 diabetes mellitus with diabetic polyneuropathy (principal); L60.3 Nail dystrophy; M21.41 Flat foot [pes planus] (acquired), right foot; M21.42 Flat foot [pes planus] (acquired), left foot; M20.41 Other hammer toe(s) (acquired), right foot; M20.42 Other hammer toe(s) (acquired), left foot; I73.9 Peripheral vascular disease, unspecified; Z79.84 Long term (current) use of oral hypoglycemic drugs; Z79.4 Long term (current) use of insulin | CPT/HCPCS: 11721 ==

== ENCOUNTER → 2025-04-29 11:14 | Outpatient (BNVA) | payer MEDICARE, SELFPAY | PROVIDERS: PCP Family Medicine; Visit Provider Podiatrist Foot & Ankle Surgery | DX: E11.42 Type 2 diabetes mellitus with diabetic polyneuropathy (principal); L60.3 Nail dystrophy; M21.41 Flat foot [pes planus] (acquired), right foot; M21.42 Flat foot [pes planus] (acquired), left foot; M20.41 Other hammer toe(s) (acquired), right foot; M20.42 Other hammer toe(s) (acquired), left foot; I73.9 Peripheral vascular disease, unspecified; Z79.84 Long term (current) use of oral hypoglycemic drugs; Z79.4 Long term (current) use of insulin | CPT/HCPCS: 11721 ==